=== PATIENT | female | born 1980 | race Caucasian/White ===

== ENCOUNTER 2016-06-15 07:39 | Emergency (ER) | payer OTHER ==
[~2016-06-15] VITALS: Ht 162.6 cm; Wt 80.3 kg
[2016-06-15 07:48] VITALS: BP 123/77; PULSE 82; RESP 18; TEMP 98.3; O2SAT 98
[2016-06-15] MEDS ORDERED: PRIS50TA PO (08:03)
[2016-06-15] MEDS ORDERED: TOPA25TA8 PO (08:03)
[2016-06-15] MEDS ORDERED: ZITHTAB PO (08:16)
[2016-06-15] MEDS ORDERED: PHENERGAN W CODEIN PO (08:16)
--- NOTE | 2016-06-15 08:16 | PD ---
HPI Chief Complaint: Cold / Flu Symptoms Time Seen by Provider: 08:04 Travel History International Travel<30 days: No Contact w/Intl Traveler<30days: No Traveled to known affect area: No History of Present Illness HPI 35-year-old female complains of headache, sore throat, coughing, nausea vomiting. Patient states the symptoms started yesterday. Patient states the cough is dry cough persistent cough. Patient denies any chest pain or shortness of breath. Patient denies abdominal pain. Patient denies any fever chills. Patient states that she vomited this morning after coughing spell. PFSH Past Medical History Anxiety: Yes Depression: Yes Diminished Hearing: No Psychiatric: Yes (ptsd) Respiratory: Yes (ASTHMA) Influenza Vaccination: No ?: Not LMP: LMP 06/09/16 Past Surgical History Surgical History: No Previous Surgery Social History Alcohol Use: No Tobacco Use: No Substance Use: Yes (medical marijuana) Allergies-Medications (Allergen,Severity, Reaction): Coded Allergies: Aspirin (Verified Allergy, Intermediate, GI UPSET, 06/15/16) Reported Meds & Prescriptions Reported Meds & Active Scripts Active Reported Topamax (Topiramate) 25 Mg Tab 25 Mg PO DAILY Pristiq 24 HR (Desvenlafaxine ER 24 HR) 50 Mg Tab 50 Mg PO DAILY Review of Systems General / Constitutional: No: Fever Eyes: No: Visual changes HENT: Positive: Sore Throat, No: Headaches Cardiovascular: No: Chest Pain or Discomfort Respiratory: Positive: Cough, No: Shortness of Breath Gastrointestinal: No: Abdominal Pain Genitourinary: No: Dysuria Musculoskeletal: No: Pain Skin: No Rash Neurologic: No: Weakness Psychiatric: No: Depression Endocrine: No: Polydipsia Hematologic/Lymphatic: No: Easy Bruising Physical Exam Narrative GENERAL: Well-nourished, well-developed patient. SKIN: Warm and dry. HEAD: Normocephalic. EYES: No scleral icterus. No injection or drainage. TM: Clear. Throat: Nonerythematous. NECK: Supple, trachea midline. No JVD or lymphadenopathy. CARDIOVASCULAR: Regular rate and rhythm without murmurs, gallops, or rubs. RESPIRATORY: Breath sounds equal bilaterally. No accessory muscle use. GASTROINTESTINAL: Abdomen soft, non-tender, nondistended. MUSCULOSKELETAL: No cyanosis, or edema. BACK: Nontender without obvious deformity. No CVA tenderness. Data Data Last Documented VS Vital Signs Date Time Temp Pulse Resp B/P Pulse Ox O2 Delivery O2 Flow Rate FiO2 06/15/16 08:04 18 06/15/16 07:48 98.3 82 123/77 98 MDM Medical Decision Making Medical Screen Exam Complete: Yes Emergency Medical Condition: Yes Differential Diagnosis Differential diagnosis including viral syndrome, otitis media, pharyngitis, bronchitis, pneumonia, gastroenteritis. Narrative Course 35-year-old female with headache, sore throat, coughing nausea vomiting. Diagnosis Primary Impression: Flu Patient Instructions: General Instructions Additional Instructions: Z-Edgar if persistent cough. Tylenol for aching pain and headache. Follow-up with personal physician. Return if worse. Med/Other Pt SpecificInfo: Prescription(s) given Scripts [Phenergan W Codein] No Conflict Check10 Ml PO Q6HR #120 Prov:Silvio Arreola MD 06/15/16 Azithromycin (Zithromax Z-Edgar)250 Mg Alem817 Mg PO DIRECTED #1 DSPK 500 MG (2 tabs) day 1, then 1 tab days 2-5. Prov:Silvio Arreola MD 06/15/16 Disposition: 01 DISCHARGE HOME Condition: Stable Silvio Arreola MD Jun 15, 2016 08:16
== END 2016-06-15 08:24 | disposition home or self-care (01) ==
LOC: PHED 07:39
DX: J10.1 Influenza due to other identified influenza virus with other respiratory manifestations (principal); F41.8 Other specified anxiety disorders; J45.909 Unspecified asthma, uncomplicated; F43.10 Post-traumatic stress disorder, unspecified; F12.10 Cannabis abuse, uncomplicated
CPT/HCPCS: 99283